=== PATIENT | male | born 1950 | race Caucasian/White ===

== ENCOUNTER 2018-08-26 09:35 | Emergency (ER) | payer OTHER, BC ==
[2018-08-26] MEDS ORDERED: NS 500 ML IV ONE (09:57)
--- NOTE | 2018-08-26 09:57 | EDPHY ---
H & P Stated Complaint: CP/SOB Time Seen by Provider: 08/26/18 09:50 HPI/ROS: HPI: This is a 68-year-old male who presents with Chief Complaint: Chest pain, shortness of breath Location: Chest Quality: Pain, dyspnea Duration: 1 hr prior to arrival Signs and Symptoms: + shortness of breath at rest, no shortness of breath on exertion, no cough, + chest pain, no palpitations, no lower extremity edema, no wheezing, no orthopnea, no paroxysmal nocturnal dyspnea, no fever, no injury/ trauma, no hemoptysis, no carpal pedal spasms, no nausea, no vomiting, no diaphoresis, + cardiac awareness Timing: Acute, lasting a few seconds, resolved Severity: [id number] Context: Patient has a history of coronary disease, hypertension, hyperlipidemia, visiting from [place] for presents with sudden onset of midsternal chest "twinge" and associated shortness of breath at rest that lasted "a few seconds while standing at the counter making a sandwich. Patient reports that the symptoms of started approximately 1 hr ago and have resolved within a few seconds. He currently denies any chest pain, shortness of breath, lower extremity edema, nausea, vomiting, diaphoresis, cardiac awareness. Patient reports that he went for hike this morning and completed the hike without any difficulty. After the hiking, he felt a little "lightheaded" and drink some water with relief of symptoms. He then made a sandwich and then experience the chest "twinge". Patient reports that this feels different than his time when he had a heart attack in April 2018. Patient reports that he had 1 cardiac stent placed as "in the large vessel." He is compliant with taking baby aspirin daily, statin, blood pressure medications. He will be in [place], [place] for another week before he returns to [place]. No history of clotting disorders in the family. Patient reports that he has had some nasal congestion and intermittent cough for the last few days. Modifying Factors: None Comment: ROS: A comprehensive 10 system review of systems is otherwise negative aside from elements mentioned in the history of present illness. MEDICAL/SURGICAL/SOCIAL HISTORY: Medical history: [place] Apr 2018, HtN, HLD, coronary artery disease Surgical history: Cardiac stent x1 April 2018 Social history: Former smoker. Employed. CONSTITUTIONAL: Well-developed, well-nourished, overweight elderly white male, awake and alert, no obvious distress HEENT: Atraumatic and normocephalic, PERRL, EOMI. White enriquez noted. Nares patent; no rhinorrhea; no nasal mucosal edema. Tympanic membranes clear. Oropharynx clear, no exudate and moist pink mucosa. Airway patent. No lymphadenopathy. No meningismus. Cardiovascular: Normal S1/S2, regular rate, regular rhythm, without murmur rub or gallop. PULMONARY/CHEST: Symmetrical and nontender. Clear to auscultation bilaterally. Good air movement. No accessory muscle usage. ABDOMEN: Soft, nondistended, nontender, no rebound, no guarding, no peritoneal signs, no masses or organomegaly. No CVAT. EXTREMITIES: 2/2 pulses, strength 5/5, no deformities, no clubbing, no cyanosis or edema. NEUROLOGICAL: no focal neuro deficits. GCS 15. SKIN: Warm and dry, no erythema. no rash. Good capillary refill. Source: Patient Exam Limitations: No limitations - Personal History Current Tetanus/Diphtheria Vaccine: Yes - Medical/Surgical History Hx Asthma: No Hx Chronic Respiratory Disease: No Hx Diabetes: No Hx Cardiac Disease: Yes Hx Renal Disease: Yes Hx Cirrhosis: No Hx Alcoholism: No Other PMH: [place] , HtN, HLD, - Social History Smoking Status: Former smoker Constitutional: Initial Vital Signs Temperature (C) 36.7 C 08/26/18 09:37 Heart Rate 74 08/26/18 09:37 Respiratory Rate 18 08/26/18 09:37 Blood Pressure 139/106 H 08/26/18 09:37 O2 Sat (%) 95 08/26/18 09:37 O2 Delivery Mode Room Air Allergies/Adverse Reactions: adhesive tape Allergy (Verified 08/26/18 09:43) Medical Decision Making - Diagnostics Imaging Results: Imaging Impressions Chest X-Ray 08/26/18 09:57 Impression: Negative chest. ED Course/Re-evaluation: Vital signs reviewed and stable upon arrival. Initial EKG shows normal sinus rhythm; with no acute ischemic changes. Reviewed at bedside with attending. Patient is currently asymptomatic. HEART score= intermediate risk risk I reviewed the share decision making instrument with the patient, including risk of MACE, and the patient (and family) that are in agreement with the chosen disposition. IV access, laboratory studies, chest x-ray ordered Patient given 1.5 L normal saline 1032: Notified by [facility] that troponin 0.00 1040: Labs reviewed. No signs of leukocytosis/anemia/platelet dysfunction/ elevated LFTs/electrolyte imbalance/pancreatitis/VTE. BUN is 25 and creatinine 1.4; received IV fluid hydration 1048: Receive records from [place] and reviewed. Cardiology associates history of STEMI with МАРИЯ LAD, ischemic dilated cardiomyopathy with an EF 55-60 % on 04/18/2018. Supervisor [place] is Dr. Dean Sherman 1140: Chest x-ray my read shows no opacity, no effusion, no widened mediastinum , no pneumothorax 1330: Repeat EKG shows stability. Normal sinus rhythm with rate of 58 beats per minute. No acute ischemic changes. Repeat 3 hr troponin 0.00 After discussion with attending and negative lab an EKG findings, Patient is appropriate to be discharged home with Cardiology follow-up This patient was seen under the supervision of my secondary supervising physician. I evaluated care for this patient with attending. Discussed this patient with Dr. Escobar. Differential Diagnosis: Chest pain including but not limited to myocardial ischemia, pulmonary embolus, chest wall pain, pleural inflammation and pulmonary infectious causes. - Data Points Laboratory Results: Laboratory Results 08/26/18 10:15 08/26/18 10:15 08/26/18 08/26/18 08/26/18 13:42 10:18 10:15 WBC RBC Hgb Hct MCV MCH MCHC RDW Plt Count MPV Neut % (Auto) Lymph % (Auto) [place] % (Auto) Eos % (Auto) Baso % (Auto) Nucleat RBC Rel Count Absolute Neuts (auto) Absolute Lymphs (auto) Absolute Monos (auto) Absolute Eos (auto) Absolute Basos (auto) Absolute Nucleated RBC Immature Gran % Immature Gran # D-Dimer Sodium 140 mEq/L mEq/L (135-145) Potassium 4.6 mEq/L mEq/L (3.5-5.2) Chloride 109 mEq/L mEq/L (97-110) Carbon Dioxide 24 mEq/l mEq/l (22-31) Anion Gap 7 mEq/L mEq/L (6-14) BUN 25 mg/dL H mg/dL (7-23) Creatinine 1.4 mg/dL H mg/dL (0.7-1.3) Estimated GFR 51 Glucose 97 mg/dL mg/dL (70-100) Calcium 10.0 mg/dL mg/dL (8.5-10.4) Total Bilirubin 0.6 mg/dL mg/dL (0.1-1.4) Conjugated Bilirubin 0.3 mg/dL mg/dL (0.0-0.5) Unconjugated Bilirubin 0.3 mg/dL mg/dL (0.0-1.1) AST 27 IU/L IU/L (17-59) ALT 50 IU/L IU/L (21-72) Alkaline Phosphatase 80 IU/L IU/L (38-126) POC Troponin I 0.00 ng/mL ng/mL 0.00 ng/mL ng/mL (0.00-0.08) (0.00-0.08) Total Protein 6.4 g/dL g/dL (6.3-8.2) Albumin 4.0 g/dL g/dL (3.5-5.0) Lipase 89 IU/L IU/L (23-300) 08/26/18 08/26/18 10:15 10:15 WBC 7.20 10^3/uL 10^3/uL (3.80-9.50) RBC 4.82 10^6/uL 10^6/uL (4.40-6.38) Hgb 15.3 g/dL g/dL (13.7-17.5) Hct 45.3 % % (40.0-51.0) MCV 94.0 fL fL (81.5-99.8) MCH 31.7 pg pg (27.9-34.1) MCHC 33.8 g/dL g/dL (32.4-36.7) RDW 12.6 % % (11.5-15.2) Plt Count 157 10^3/uL 10^3/uL (150-400) MPV 10.3 fL fL (8.7-11.7) Neut % (Auto) 66.4 % % (39.3-74.2) Lymph % (Auto) 20.7 % % (15.0-45.0) [place] % (Auto) 8.9 % % (4.5-13.0) Eos % (Auto) 2.9 % % (0.6-7.6) Baso % (Auto) 0.8 % % (0.3-1.7) Nucleat RBC Rel Count 0.0 % % (0.0-0.2) Absolute Neuts (auto) 4.78 10^3/uL 10^3/uL (1.70-6.50) Absolute Lymphs (auto) 1.49 10^3/uL 10^3/uL (1.00-3.00) Absolute Monos (auto) 0.64 10^3/uL 10^3/uL (0.30-0.80) Absolute Eos (auto) 0.21 10^3/uL 10^3/uL (0.03-0.40) Absolute Basos (auto) 0.06 10^3/uL 10^3/uL (0.02-0.10) Absolute Nucleated RBC 0.00 10^3/uL 10^3/uL (0-0.01) Immature Gran % 0.3 % % (0.0-1.1) Immature Gran # 0.02 10^3/uL 10^3/uL (0.00-0.10) D-Dimer 0.33 ug/mLFEU ug/mLFEU (0.00-0.50) Sodium Potassium Chloride Carbon Dioxide Anion Gap BUN Creatinine Estimated GFR Glucose Calcium Total Bilirubin Conjugated Bilirubin Unconjugated Bilirubin AST ALT Alkaline Phosphatase POC Troponin I Total Protein Albumin Lipase Medications Given: Discontinued Medications Sodium Chloride (Ns) 500 mls @ 1,000 mls/hr IV EDNOW ONE PRN Reason: Protocol Stop: 08/26/18 10:26 Last Admin: 08/26/18 10:32 Dose: 500 mls Sodium Chloride (Ns) 1,000 mls @ 0 mls/hr IV EDNOW ONE; Wide Open PRN Reason: Protocol Stop: 08/26/18 10:45 Last Admin: 08/26/18 11:23 Dose: 1,000 mls Point of Care Test Results: Chemistry 08/26/18 08/26/18 13:42 10:18 POC Troponin I 0.00 ng/mL ng/mL 0.00 ng/mL ng/mL (0.00-0.08) (0.00-0.08) Departure - Departure Disposition: Home, Routine, Self-Care Clinical Impression: Mild dehydration, Atypical chest pain Condition: Good Instructions: Chest Pain (ED), Dehydration (ED) Additional Instructions: Consume a minimum of 8-10 glasses of water or electrolyte fluid replacement drinks that include Gatorade, Powerade, Pedialyte. Please limit moderate or strenuous activity at higher altitude. Follow-up with vending machine attendant upon return to [place]. Return at once for any worsening symptoms or concerns. Referrals: YO[facility] TAPIA [Other] - As per Instructions
[2018-08-26 10:29] LABS: PLATELET COUNT 157 10^3/uL (150-400)
[2018-08-26] MEDS ORDERED: NS 1,000 ML IV ONE (10:44)
--- NOTE | 2018-08-26 11:18 | CPEKG ---
Test Reason : OPEN Blood Pressure : / mmHG Vent. Rate : 066 BPM Atrial Rate : 066 BPM P-R Int : 174 ms QRS Dur : 082 ms QT Int : 373 ms P-R-T Axes : 047 016 048 degrees QTc Int : 391 ms Sinus rhythm Low voltage, precordial leads Confirmed by Kaveh Escobar ([id number]) on 08/26/2018 11:17:41 AM Referred By: Kaveh Escobar Confirmed By:Kaveh Escobar
--- NOTE | 2018-08-26 14:07 | CPEKG ---
Test Reason : OPEN Blood Pressure : / mmHG Vent. Rate : 058 BPM Atrial Rate : 058 BPM P-R Int : 179 ms QRS Dur : 081 ms QT Int : 410 ms P-R-T Axes : 019 -03 031 degrees QTc Int : 403 ms Sinus rhythm Confirmed by Kaveh Escobar ([id number]) on 08/26/2018 2:07:25 PM Referred By: Kaveh Escobar Confirmed By:Kaveh Escobar
[2018-08-26 14:22] VITALS: BP 143/88
== END 2018-08-26 14:20 | disposition home or self-care (01) ==
DX: E86.0 Dehydration (principal); R07.9 Chest pain, unspecified; I25.10 Atherosclerotic heart disease of native coronary artery without angina pectoris; I10 Essential (primary) hypertension
CPT/HCPCS: 84484-ER